=== PATIENT | female | born 1960 | race African-American/Black ===

== ENCOUNTER 2016-08-18 20:29 | Emergency (ER) | payer OTHER ==
[2016-08-18] MEDS ORDERED: Nitroglycerin 2% Ointment 1 INCH/1 GM Packet ONE (20:48)
[2016-08-18 21:11] LABS: ALT (SGPT) 12 U/L (0-55); AST (SGOT) 14 U/L (5-34); Albumin 4.2 g/dL (3.5-5.0); Alkaline Phosphatase 58 U/L (40-150); Anion Gap 15 mmol/L (10-20); BUN (Urea Nitrogen) 19 mg/dL (9.8-20.1); Bilirubin, Total 0.5 mg/dL (0.2-1.2); Calc. Creatinine Clearance 0 mL/min (70-130); Carbon Dioxide 21 mmol/L (22-29); Chloride 106 mmol/L (98-107); Estimated GFR-MDRD 44; Globulin 3.5 g/dL (2.4-3.5); Glucose 98 mg/dL (70-105); Potassium 3.1 mmol/L (3.5-5.1); Protein, Total 7.7 g/dL (6.0-8.3); Sodium 139 mmol/L (136-145)
[2016-08-18 21:12] LABS: CKMB 0.8 ng/mL (0-6.6); Troponin I 0.019 ng/mL (< 0.028)
--- NOTE | 2016-08-18 21:13 | RAD ---
RADIOGRAPH CHEST 1 VIEW: 08/18/16 HISTORY: 55-year-old female with acute chest pain. FINDINGS: The visualized lung velasco are clear. The cardiomediastinal silhouette and hilar shadows are normal . The lateral costophrenic angles are sharp. The osseous structures appear normal. There is no pn eumothorax. IMPRESSION: Negative. heriberto [] POS: [facility]
[2016-08-18 21:17] LABS: CK (CPK) 93 U/L (29-168)
[2016-08-18 21:26] LABS: Band 1 % (5-11); Eosinophils 3 % (0-10); Hemoglobin 12.8 g/dL (12.0-16.0); Lymphocytes 49 % (21-51); MDiff Complete? YES; Mean Corpuscular HGB CONC 33.9 g/dL (32.0-36.0); Mean Corpuscular Hemoglobin 32.2 pg (27.0-31.0); Mean Corpuscular Volume 95.1 fl (81.0-99.0); Mean Platelet Volume 6.8 fL (7.4-10.4); Monocytes 7 % (0-10); Neutrophil 39 % (42-75); PLT Morphology Comment Appears Adequate; Platelet Count 218 thou/uL (130-400); RBC Distribution Width 12.7 % (11.5-14.5); RBC Morphology Normal; Red Blood Cell (RBC) Count 3.96 mill/uL (4.20-5.40)
[2016-08-18] MEDS ORDERED: Pot Chloride/Pot Bicarb/Cit Ac 25 mEq Effervescent Tablet ONE (22:05)
== END 2016-08-18 22:35 | disposition short-term general hospital (02) ==
LOC: NAV ERS 20:29
DX: I25.10 Atherosclerotic heart disease of native coronary artery without angina pectoris (principal); E87.6 Hypokalemia; I10 Essential (primary) hypertension; I25.2 Old myocardial infarction; J44.9 Chronic obstructive pulmonary disease, unspecified; E78.5 Hyperlipidemia, unspecified; F32.9 Major depressive disorder, single episode, unspecified; F41.9 Anxiety disorder, unspecified; F17.210 Nicotine dependence, cigarettes, uncomplicated; Z79.82 Long term (current) use of aspirin; Z79.899 Other long term (current) drug therapy
CPT/HCPCS: 71010; 80053; 82553; 84484; 85025; 93005

== ENCOUNTER 2017-03-04 16:14 | Emergency (ER) | payer OTHER ==
[2017-03-04] MEDS ORDERED: traMADol HCl 50 MG TAB ONE (17:05)
--- NOTE | 2017-03-04 17:14 | RAD ---
RIGHT HUMERUS TWO VIEW 03/04/17 HISTORY: Right arm pain after falling off a ladder two weeks ago. COMPARISON: None. FINDINGS: Humerus is intact. Soft tissues are unremarkable. IMPRESSION: Intact humerus. POS: [facility]
--- NOTE | 2017-03-04 17:37 | RAD ---
RIGHT ELBOW FOUR VIEW 03/04/17 HISTORY: Pain after falling from a ladder two weeks ago. Pain to the elbow. COMPARISON: None. FINDINGS: There is an ossification along the triceps tendon insertion which may be sequela of partial avulsion given the overlying soft tissue edema. Mild osteophyte formation of the sublime tubercle. No signif icant joint effusion. IMPRESSION: Abnormal ossification projecting over the triceps tendon near the olecranon may represent osseous av ulsion. MRI may be helpful. Olecranon bursitis is also within the differential but felt less likely. POS: [facility]
== END 2017-03-04 18:00 | disposition home or self-care (01) ==
LOC: NAV ERS 16:14
DX: S52.024A Nondisplaced fracture of olecranon process without intraarticular extension of right ulna, initial encounter for closed fracture (principal); E78.5 Hyperlipidemia, unspecified; I10 Essential (primary) hypertension; I25.2 Old myocardial infarction; J44.9 Chronic obstructive pulmonary disease, unspecified; F32.9 Major depressive disorder, single episode, unspecified; F41.9 Anxiety disorder, unspecified; F17.210 Nicotine dependence, cigarettes, uncomplicated; Z79.82 Long term (current) use of aspirin; Z79.899 Other long term (current) drug therapy
CPT/HCPCS: 29105

== ENCOUNTER 2017-03-05 14:01 | Emergency (ER) | payer OTHER ==
[2017-03-05] MEDS ORDERED: HYDROcodone/Acetaminophen 5/325 mg Tablet ONE (14:28)
== END 2017-03-05 16:04 | disposition home or self-care (01) ==
LOC: NAV ERS 14:01
DX: S52.024A Nondisplaced fracture of olecranon process without intraarticular extension of right ulna, initial encounter for closed fracture (principal); E78.5 Hyperlipidemia, unspecified; I25.2 Old myocardial infarction; J44.9 Chronic obstructive pulmonary disease, unspecified; I10 Essential (primary) hypertension; Z86.19 Personal history of other infectious and parasitic diseases; F41.9 Anxiety disorder, unspecified; F32.9 Major depressive disorder, single episode, unspecified; F17.210 Nicotine dependence, cigarettes, uncomplicated; Z79.82 Long term (current) use of aspirin; Z79.899 Other long term (current) drug therapy; X58.XXXA Exposure to other specified factors, initial encounter
CPT/HCPCS: 29105

== ENCOUNTER 2017-05-18 18:30 | Emergency (ER) | payer OTHER ==
[2017-05-18] MEDS ORDERED: Ibuprofen 800 MG TAB ONE (19:06)
--- NOTE | 2017-05-18 20:58 | RAD ---
THREE VIEWS LEFT FOOT 05/18/17 HISTORY: Left foot injury. Patient has pain to top of left foot which started at the great toe and now extends to the ankle. Patient fell two days ago. FINDINGS: Mild degenerative changes are seen involving the tarsal bones and metatarsophalangeal joints. There i s no fracture or dislocation seen involving the left foot. Minimal subcutaneous soft tissue swelling is seen at the dorsal aspect of the forefoot. IMPRESSION: Minimal subcutaneous soft tissue swelling, but no acute osseous abnormality is identified. POS: [facility]
== END 2017-05-18 20:08 | disposition home or self-care (01) ==
LOC: NAV ERS 18:30
DX: M79.672 Pain in left foot (principal); M10.9 Gout, unspecified; E78.5 Hyperlipidemia, unspecified; I10 Essential (primary) hypertension; I25.2 Old myocardial infarction; J44.9 Chronic obstructive pulmonary disease, unspecified; F41.9 Anxiety disorder, unspecified; F32.9 Major depressive disorder, single episode, unspecified; F17.210 Nicotine dependence, cigarettes, uncomplicated; Z79.82 Long term (current) use of aspirin; Z79.899 Other long term (current) drug therapy

== ENCOUNTER 2017-09-24 14:31 | Emergency (ER) | payer OTHER ==
--- NOTE | 2017-09-24 15:37 | RAD ---
TWO VIEWS CHEST: HISTORY: Cough and congestion x 1 week. COMPARISON: 11/21/14. FINDINGS: Normal cardiac silhouette. Costophrenic angles are clear. Minimal thickening of the minor fissure. Subsegmental scar/atelectasis in the left mid lung. No masses or consolidation. No pneumothorax or osseous abnormalities. IMPRESSION: No acute cardiopulmonary process. POS: [facility]
== END 2017-09-24 15:22 | disposition home or self-care (01) ==
LOC: NAV ERS 14:31
DX: J20.9 Acute bronchitis, unspecified (principal); I25.10 Atherosclerotic heart disease of native coronary artery without angina pectoris; I10 Essential (primary) hypertension; J44.9 Chronic obstructive pulmonary disease, unspecified; M10.9 Gout, unspecified; I25.2 Old myocardial infarction; E78.5 Hyperlipidemia, unspecified; F41.9 Anxiety disorder, unspecified; F32.9 Major depressive disorder, single episode, unspecified; F17.210 Nicotine dependence, cigarettes, uncomplicated; Z79.02 Long term (current) use of antithrombotics/antiplatelets; Z79.899 Other long term (current) drug therapy
CPT/HCPCS: 71046

== ENCOUNTER → 2017-10-16 | Emergency (ER) | payer OTHER | LOC: NAV ERS 21:04 | DX: K11.20 Sialoadenitis, unspecified (principal); K21.9 Gastro-esophageal reflux disease without esophagitis; E78.5 Hyperlipidemia, unspecified; I10 Essential (primary) hypertension; I25.2 Old myocardial infarction; J44.9 Chronic obstructive pulmonary disease, unspecified; F41.9 Anxiety disorder, unspecified; F32.9 Major depressive disorder, single episode, unspecified; F17.210 Nicotine dependence, cigarettes, uncomplicated; Z79.899 Other long term (current) drug therapy | CPT/HCPCS: 99283 ==

== ENCOUNTER 2017-12-02 00:55 | Emergency (ER) | payer OTHER ==
[2017-12-02] MEDS ORDERED: Ketorolac Tromethamine 60 MG/2 ML VIAL ONE (01:34)
== END 2017-12-02 02:05 | disposition home or self-care (01) ==
LOC: NAV ERS 00:55
DX: M25.572 Pain in left ankle and joints of left foot (principal); K21.9 Gastro-esophageal reflux disease without esophagitis; E78.5 Hyperlipidemia, unspecified; I10 Essential (primary) hypertension; B19.20 Unspecified viral hepatitis C without hepatic coma; J44.9 Chronic obstructive pulmonary disease, unspecified; M10.9 Gout, unspecified; F41.9 Anxiety disorder, unspecified; F32.9 Major depressive disorder, single episode, unspecified; F17.200 Nicotine dependence, unspecified, uncomplicated; Z79.899 Other long term (current) drug therapy; Z79.82 Long term (current) use of aspirin
CPT/HCPCS: 96372; J1885

== ENCOUNTER 2018-05-24 16:33 | Emergency (ER) | payer OTHER ==
--- NOTE | 2018-05-24 18:04 | RAD ---
FRONTAL AND LATERAL IMAGING OF THE CHEST 05/24/18 COMPARISON: 09/24/17 HISTORY: Chest congestion and headache. FINDINGS: There is no pneumothorax, pleural fluid, focal consolidation, or alveolar edema. Heart and mediastina l contours appear unremarkable. IMPRESSION: No acute findings. POS: [facility]
== END 2018-05-24 18:04 | disposition home or self-care (01) ==
LOC: NAV ERS 16:33
DX: R05 Cough (principal); R09.89 Other specified symptoms and signs involving the circulatory and respiratory systems; R51 Headache; K21.9 Gastro-esophageal reflux disease without esophagitis; E78.5 Hyperlipidemia, unspecified; I10 Essential (primary) hypertension; M10.9 Gout, unspecified; J44.9 Chronic obstructive pulmonary disease, unspecified; F41.9 Anxiety disorder, unspecified; F17.210 Nicotine dependence, cigarettes, uncomplicated; Z79.899 Other long term (current) drug therapy; Z79.82 Long term (current) use of aspirin
CPT/HCPCS: 71046

== ENCOUNTER 2019-03-16 20:50 | Emergency (ER) | payer OTHER ==
[2019-03-16] MEDS ORDERED: Morphine 4 MG/ML VIAL ONE (21:24)
[2019-03-16] MEDS ORDERED: Nitroglycerin 2% Ointment 1 INCH/1 GM Packet ONE (21:24)
[2019-03-16] MEDS ORDERED: Ondansetron PF 4 MG/2 ML Vial ONE (21:24)
--- NOTE | 2019-03-16 21:24 | RAD ---
PORTABLE CHEST ONE VIEW: 03/16/19 at 8:51 p.m. HISTORY: Chest pain. FINDINGS: Comparison is made with exam of 05/24/18. The heart size is normal. The lungs are expanded without focal areas of consolidation, pneumothoraces or pleural effusions. IMPRESSION: No acute process. POS: [facility]
[2019-03-16 21:30] LABS: ALT (SGPT) 17 U/L (8-55); AST (SGOT) 36 U/L (5-34); Albumin 4.1 g/dL (3.5-5.0); Alkaline Phosphatase 61 U/L (40-110); BUN (Urea Nitrogen) 13 mg/dL (9.8-20.1); Bilirubin, Total 0.2 mg/dL (0.2-1.2); Calc. Creatinine Clearance 0 mL/min (70-130); Calcium 9.3 mg/dL (7.8-10.44); Carbon Dioxide 23 mmol/L (22-29); Chloride 105 mmol/L (98-107); Estimated GFR-MDRD 87; Globulin 4.4 g/dL (2.4-3.5); Glucose 90 mg/dL (70-105); Protein, Total 8.5 g/dL (6.0-8.3); Sodium 141 mmol/L (136-145)
[2019-03-16 21:32] LABS: Potassium 4.2 mmol/L (3.5-5.1)
[2019-03-16 21:33] LABS: Anion Gap 17 mmol/L (10-20); CK (CPK) 67 U/L (29-168); Lipase 24 U/L (8-78)
[2019-03-16 21:37] LABS: Hemoglobin 13.5 g/dL (12.0-16.0); Lymphocytes 74 % (21-51); MDiff Complete? YES; Mean Corpuscular HGB CONC 32.7 g/dL (32.0-36.0); Mean Corpuscular Hemoglobin 32.1 pg (27.0-31.0); Mean Corpuscular Volume 98.1 fL (78.0-98.0); Mean Platelet Volume 8.5 fL (7.4-10.4); Monocytes 3 % (0-10); Neutrophil 18 % (42-75); Platelet Count 229 thou/uL (130-400); Platelet Morphology Comment Appears Adequate; RBC Distribution Width 13.6 % (11.5-14.5); RBC Morphology Normal; Reactive Lymphocytes 5 % (0-10); Red Blood Cell (RBC) Count 4.22 mill/uL (4.20-5.40); White Blood Cell (WBC) Count 7.2 thou/uL (4.8-10.8)
[2019-03-16] MEDS ORDERED: Mag-Al Plus 1200 MG/1200 MG/120 MG/30 ML UDCUP ONE (21:41)
[2019-03-16] MEDS ORDERED: Lidocaine Viscous Sol 2% 15 ml UD Cup ONE (21:41)
== END 2019-03-16 23:30 | disposition short-term general hospital (02) ==
LOC: NAV ERS 20:50
DX: R07.2 Precordial pain (principal); E78.5 Hyperlipidemia, unspecified; E78.00 Pure hypercholesterolemia, unspecified; F32.9 Major depressive disorder, single episode, unspecified; F41.9 Anxiety disorder, unspecified; I25.2 Old myocardial infarction; K21.9 Gastro-esophageal reflux disease without esophagitis; M10.9 Gout, unspecified; J44.9 Chronic obstructive pulmonary disease, unspecified; I10 Essential (primary) hypertension; F17.210 Nicotine dependence, cigarettes, uncomplicated; Z86.19 Personal history of other infectious and parasitic diseases; Z79.899 Other long term (current) drug therapy; Z79.82 Long term (current) use of aspirin
CPT/HCPCS: 71045; 80053; 82550; 83690; 84484; 85025; 93005; 96374; 96375; J2270; J2405

== ENCOUNTER 2019-03-30 15:28 | Emergency (ER) | payer OTHER | END 2019-03-30 15:55 | disposition home or self-care (01) | LOC: NAV ERS 15:28 | DX: R68.84 Jaw pain (principal); I25.2 Old myocardial infarction; I10 Essential (primary) hypertension; F41.9 Anxiety disorder, unspecified; F32.9 Major depressive disorder, single episode, unspecified; F17.210 Nicotine dependence, cigarettes, uncomplicated; Z79.899 Other long term (current) drug therapy | CPT/HCPCS: 99283 ==

== ENCOUNTER 2020-03-11 10:49 | Emergency (ER) | payer OTHER ==
--- NOTE | 2020-03-11 11:41 | RAD ---
Exam: XR Foot Lt 3 View STANDARD HISTORY: Left fifth toe pain and swelling. COMPARISON: 05/18/2017 FINDINGS: No acute fracture, dislocation, or other acute osseous abnormality is identified. No other interval change from prior study. IMPRESSION: No acute osseous abnormality is identified.
[2020-03-11] MEDS ORDERED: Cipro 250 MG TAB ONE (11:53)
[2020-03-11] MEDS ORDERED: Cephalexin 250 MG CAP ONE (11:53)
[2020-03-11] MEDS ORDERED: HYDROcodone/Acetaminophen 5/325 mg Tablet ONE (11:56)
== END 2020-03-11 13:10 | disposition home or self-care (01) ==
LOC: NAV ERS 10:49
DX: L03.116 Cellulitis of left lower limb (principal); B35.3 Tinea pedis; I25.2 Old myocardial infarction; F41.9 Anxiety disorder, unspecified; F17.210 Nicotine dependence, cigarettes, uncomplicated; Z79.899 Other long term (current) drug therapy

== ENCOUNTER 2020-03-23 15:48 | Emergency (ER) | payer OTHER ==
[2020-03-23] MEDS ORDERED: Acetaminophen/Codeine 30-300mg Tablet ONE (16:31)
== END 2020-03-23 16:38 | disposition home or self-care (01) ==
LOC: NAV ERS 15:48
DX: L03.116 Cellulitis of left lower limb (principal); I25.2 Old myocardial infarction; E78.5 Hyperlipidemia, unspecified; E78.00 Pure hypercholesterolemia, unspecified; I10 Essential (primary) hypertension; J44.9 Chronic obstructive pulmonary disease, unspecified; F41.9 Anxiety disorder, unspecified; F32.9 Major depressive disorder, single episode, unspecified; F17.210 Nicotine dependence, cigarettes, uncomplicated; Z79.899 Other long term (current) drug therapy
CPT/HCPCS: 99283

== ENCOUNTER 2020-09-28 17:56 | Emergency (ER) | payer OTHER ==
[2020-09-28] MEDS ORDERED: Nitroglycerin 0.4 MG TAB (25 Tab Bottle) ONE (18:14)
[2020-09-28 18:41] LABS: ALT (SGPT) 20 U/L (8-55); AST (SGOT) 21 U/L (5-34); Albumin 3.9 g/dL (3.5-5.0); Alkaline Phosphatase 60 U/L (40-110); Anion Gap 14 mmol/L (10-20); BUN (Urea Nitrogen) 18 mg/dL (9.8-20.1); Bilirubin, Total 0.2 mg/dL (0.2-1.2); CK (CPK) 72 U/L (29-168); Calc. Creatinine Clearance 0 mL/min (70-130); Calcium 8.6 mg/dL (7.8-10.44); Carbon Dioxide 22 mmol/L (22-29); Chloride 107 mmol/L (98-107); Globulin 3.7 g/dL (2.4-3.5); Glucose 97 mg/dL (70-105); Lipase 54 U/L (8-78); Potassium 3.9 mmol/L (3.5-5.1); Protein, Total 7.6 g/dL (6.0-8.3); Sodium 139 mmol/L (136-145)
[2020-09-28 18:54] LABS: Hemoglobin 13.7 g/dL (12.0-16.0); Mean Corpuscular HGB CONC 31.4 g/dL (32.0-36.0); Mean Corpuscular Hemoglobin 32.1 pg (27.0-31.0); Mean Platelet Volume 7.8 fL (7.4-10.4); Platelet Count 202 thou/uL (130-400); RBC Distribution Width 12.4 % (11.5-14.5); Red Blood Cell (RBC) Count 4.28 mill/uL (4.20-5.40); White Blood Cell (WBC) Count 5.3 thou/uL (4.8-10.8)
[2020-09-28 19:23] LABS: Eosinophils 3 % (0-10); Lymphocytes 53 % (21-51); MDiff Complete? YES; Macrocytosis SLIGHT = 6-15 cells (100X) (0-5/hpf); Monocytes 2 % (0-10); Neutrophil 42 % (42-75); Platelet Morphology Comment Appears Adequate
[2020-09-28] MEDS ORDERED: Nitroglycerin 2% Ointment 1 INCH/1 GM Packet ONE (19:55)
[2020-09-28] MEDS ORDERED: Morphine 4 MG/ML VIAL ONE (20:16)
== END 2020-09-28 20:55 | disposition short-term general hospital (02) ==
LOC: NAV ERS 17:56
DX: I25.10 Atherosclerotic heart disease of native coronary artery without angina pectoris (principal); K21.9 Gastro-esophageal reflux disease without esophagitis; E78.5 Hyperlipidemia, unspecified; E78.00 Pure hypercholesterolemia, unspecified; I10 Essential (primary) hypertension; M10.9 Gout, unspecified; J44.9 Chronic obstructive pulmonary disease, unspecified; F17.210 Nicotine dependence, cigarettes, uncomplicated; Z79.82 Long term (current) use of aspirin; Z79.899 Other long term (current) drug therapy
CPT/HCPCS: 71045; 80053; 82550; 83690; 83880; 84484; 85025; 93005; 96374; J2270